=== PATIENT | male | born 1990 | race African-American/Black ===

== ENCOUNTER 2021-03-17 12:21 | Emergency (ER) | payer MEDICAID ==
[~2021-03-17] VITALS: Ht 175.3 cm; Wt 67.0 kg
[2021-03-17 12:49] VITALS: BP 121/75
[2021-03-17] MEDS ORDERED: HYDR99LO TOP (13:56)
[2021-03-17] MEDS ORDERED: DIPH25CA83 MT (13:56)
== END 2021-03-17 14:11 | disposition home or self-care (01) ==
LOC: ER 12:21
DX: R21 Rash and other nonspecific skin eruption (principal)
CPT/HCPCS: 99282

== ENCOUNTER 2021-03-19 11:09 | Emergency (ER) | payer MEDICAID ==
[~2021-03-19] VITALS: Ht 175.3 cm; Wt 70.0 kg
[~2021-03-19 11:09] MED LIST: DIPH25CA83 MT; HYDR99LO TOP
[2021-03-19 11:19] VITALS: BP 115/73
[2021-03-19] MEDS ORDERED: DOXY-326 PO (11:44)
[2021-03-19] MEDS ORDERED: CLIN30SO TP (11:44)
[2021-03-19] MEDS ORDERED: CETI-338 PO (11:44)
== END 2021-03-19 11:55 | disposition home or self-care (01) ==
LOC: ER 11:09
DX: L73.9 Follicular disorder, unspecified (principal)
CPT/HCPCS: 99283